=== PATIENT | male | born 1970 | race Caucasian/White ===

== ENCOUNTER 2020-05-19 19:49 | Emergency (ER) | payer BC, SELFPAY ==
[2020-05-19 20:00] VITALS: BP 169/105; PULSE 87; RESP 20; TEMP 36; O2SAT 98
--- NOTE | 2020-05-19 20:00 | ED.WOUNDLAC ---
HPI - Wound/Laceration General Chief Complaint: Wound/Laceration Stated Complaint: left thumb laceration Time Seen by Provider: 05/19/20 20:07 Source: patient Mode of arrival: ambulatory Limitations: no limitations History of Present Illness HPI narrative: Previously well 49-year-old man comes in today complaining of laceration on his left thumb. Patient states that he was using a razor knife to cut some plastic and slipped. It happened approximately 1 hour prior to presentation. He denies any numbness or decreased range of motion. He does not recall his last tetanus shot. Onset (ago): hour(s) (1) Extremity Location: Left: hand Place: home Patient tetanus UTD: No Context: accidental Associated symptoms: pain Treatments prior to arrival: bandage Related Data Allergies Allergy/AdvReac Type Severity Reaction Status Date / Time No Known Allergies Allergy Verified 05/19/20 20:37 Review of Systems Review of Systems: All systems reviewed & are unremarkable except as noted in HPI and below Constitutional: Constitutional: Denies chills and Denies fever(s) Respiratory: Respiratory: Denies cough and Denies dyspnea Gastrointestinal: Gastrointestinal: Denies nausea and Denies vomiting Musculoskeletal: Musculoskeletal: Denies arthralgias and Denies joint swelling Integumentary/Breasts: Skin/Breast: Denies pruritus, Denies erythema and Denies rash Neurologic: Denies focal weakness and Denies numbness Hematologic/Lymphatic: Hematologic/Lymphatic: Denies easy bleeding and Denies easy bruising PMFSH Social History Social History Smoking status: Never smoker Alcohol intake: never Substance use: never Living arrangements: with family Exam Const: General: healthy appearing and alert Orientation/consciousness: patient oriented x3 Limitations: no limitations Other: Mild acute distress. Eyes: Conjunctivae: conjunctivae normal Pupils: Equal, round and reactive pupils present EOM: EOMs intact bilaterally Resp: Effort & Inspection: normal respiratory effort and not labored Auscultation: clear to auscultation bilaterally, no rales, no rhonchi and no wheezes Cardio: Rate: regular rate Rhythm: regular rhythm Heart sounds: no murmurs Skin: General skin exam: normal color, no jaundice and no pallor Rashes: no rashes Other: 3.5 cm laceration on the ulnar aspect and the tip of the left thumb. Normal distal neurovascular exam. No foreign bodies. Neuro: General: patient oriented x3, moves all extremities, no focal motor deficits and CN's II-XI intact bilaterally Speech: normal speech Gait exam (Neuro): Normal gait present Extrem: General: normal to inspection and no clubbing, cyanosis or edema Psych: Appearance: grossly normal and well kempt Mental Status: mental status grossly normal Affect: normal affect Attitude: cooperative Thought content: Yes Normal thought content present Course Vital Signs Vital signs: Vital Signs Temperature 36.0 C L 05/19/20 20:00 Pulse Rate 87 05/19/20 20:00 Respiratory Rate 20 05/19/20 20:00 Blood Pressure 169/105 H 05/19/20 20:00 Pulse Oximetry 98 05/19/20 20:00 Temperature 36.0 C L 05/19/20 20:00 Pulse Rate 87 05/19/20 20:00 Respiratory Rate 20 05/19/20 20:00 Blood Pressure 169/105 H 05/19/20 20:00 Pulse Oximetry 98 05/19/20 20:00 Procedures Laceration Laceration 1: Date: 05/19/20 Time: 20:30 Site: hand Side (If applicable): left Size (cm): 3.5 Description: linear Depth: simple, single layer Local Anesthetic: lidocaine 1% Amount of anesthesia used (mL): 4 Pre-repair: wound explored and irrigated extensively ====== Skin Level ====== Skin layer closed with: nylon Size (cm): 4-0 Number of sutures: 9 Technique: simple, interrupted ====== Subcutaneous Layer ====== ====== Mus
[2020-05-19] MEDS: LIDOCAINE HCL 1% LOCAL INJ 20 ML VIAL 10 ML INFILTRATE (20:41)
[2020-05-19] MEDS: TETANUS,DIPHTHERIA,AC PERTUSSIS ADULT 0.5 ML (ADACEL) (20:42)
[2020-05-19 20:59] VITALS: BP 160/102; PULSE 87; RESP 20; TEMP 36.8; O2SAT 97
[2020-05-19] MEDS: NEOMYCIN/POLYMYXIN/BACITRACIN OINTMENT PACKET 1 PACKET (20:59)
== END 2020-05-19 21:05 | disposition home or self-care (01) ==
PROVIDERS: Emergency Provider Emergency Medicine; PCP Family Medicine
DX: S61.012A Laceration without foreign body of left thumb without damage to nail, initial encounter (principal); W26.0XXA Contact with knife, initial encounter
CPT/HCPCS: 12002; 90471; 90715; 99283

== ENCOUNTER 2023-07-16 13:16 | Emergency (ER) | payer BC, SELFPAY ==
[2023-07-16] VITALS (7 sets, daily range): BP systolic 122–144; BP diastolic 83–91; PULSE 73–95; RESP 15–20; TEMP 36.5; O2SAT 96–98
--- NOTE | ~2023-07-16 | XR_ITS ---
EXAMINATION: XR chest 2V DATE: 07/16/2023 14:55 INDICATION: Chest pain. TECHNIQUE: Frontal and lateral views of the chest were obtained. COMPARISON: None. FINDINGS: There is mild atelectasis at left lung base. No pleural effusion or pneumothorax. The heart size is normal. IMPRESSION: 1. Mild atelectasis at left lung base. Reviewed, dictated and finalized at location E.
--- NOTE | 2023-07-16 13:22 | ECG_ITS ---
SEE SCANNED COPY FOR CONFIRMED REPORT MTDD
[2023-07-16 13:37] LABS: Basophils Absolute Auto 0.1 K/mm3 (0.0-0.1); Basophils Percent Auto 0.9 % (0.2-1.2); Eosinophils Absolute Auto 0.3 K/mm3 (0-0.3); Eosinophils Percent Auto 4.6 % (0-4.4); Hematocrit 46.6 % (42.0-52.0); Hemoglobin 16.1 g/dL (14.0-18.0); Immature Granulocyte Absolute 0.02 K/mm3 (0.00-0.031); Immature Granulocyte Percent A 0.3 % (0-0.5); Lymphocytes Absolute Auto 2.45 K/mm3 (0.9-3.2); Lymphocytes Percent Auto 36.1 % (18.3-44.2); Mean Corpuscular HGB Conc 34.5 g/dl (32-36); Mean Corpuscular Hemoglobin 30.2 pg (26-34); Mean Corpuscular Volume 87.4 fl (80-100); Mean Platelet Volume 9.9 fl (7.4-10.4); Monocytes Absolute Auto 0.5 K/mm3 (0.1-0.6); Monocytes Percent Auto 7.2 % (2.6-8.5); Neutrophils Absolute Auto 3.5 K/mm3 (1.3-6.7); Neutrophils Percent Auto 50.9 % (45.5-73.1); Platelet Count Result 222 k/mm3 (150-375); Red Blood Count 5.33 M/mm3 (4.6-6.20); Red Cell Distribution Width 12.5 % (11.5-14.5); White Blood Count 6.8 K/mm3 (4.5-10.0)
[2023-07-16 13:47] LABS: Alanine Aminotransferase 55 U/L (6-50); Albumin Level 4.7 g/dL (3.5-5.1); Alkaline Phosphatase 70 U/L (38-126); Anion Gap 7 mmol/L (4-12); Aspartate Amino Transferase 33 U/L (17-59); Bilirubin,Total 0.6 mg/dL (0.2-1.3); Blood Urea Nitrogen 19 mg/dL (9-20); Calcium 9.5 mg/dL (8.4-10.2); Carbon Dioxide 24 mmol/L (22-30); Chloride 106 mmol/L (98-107); Estimated CRCL calculation 67 ml/min; Estimated Glomerular Filt Rate > 60; Glucose 131 mg/dL (65-110); Lipase 81 U/L (23-300); Potassium 4.1 mmol/L (3.4-5.0); Sodium 137 mmol/L (137-145)
[2023-07-16 13:53] LABS: INR 0.9; Partial Thromboplastin Time 26.8 Seconds (22.3-36.8); Prothrombin Time 12.2 Seconds (11.1-14.7)
[2023-07-16 13:58] LABS: Troponin I < 0.012 ng/mL (0.000-0.034)
[2023-07-16] MEDS: ASPIRIN 81 MG CHEWABLE TABLET 324 MG PO (14:49)
--- NOTE | 2023-07-16 14:50 | ED.CHESTPAIN ---
HPI - Chest Pain General Chief Complaint: Chest Pain Stated Complaint: Chest discomfort Time Seen by Provider: 07/16/23 14:31 History of Present Illness HPI narrative: This is a 52-year-old male, with history of hypertension, who presents to the emergency department complaining chest pain. The patient states this has been going on for several days. He describes the pain as pressure-like, minimal and present when he lies flat. He denies aggravation with physical or emotional exertion. He denies nausea, vomiting, diaphoresis or shortness of breath. He has no other complaints at this time. Related Data Allergies Allergy/AdvReac Type Severity Reaction Status Date / Time No Known Allergies Allergy Verified 07/16/23 13:21 Review of Systems Review of Systems: All systems reviewed & are unremarkable except as noted in HPI and below PMFSH Past Medical History Medical History Hypertension Surgical History Surgical History No significant past surgical history Social History Social History Smoking status: Never smoker Alcohol intake: never Substance use: never Living arrangements: with family Exam Narrative: GENERAL: Well-developed, well-nourished, and in no acute distress. HEAD: Normocephalic, atraumatic. EYES: PERRLA and EOMI. CHEST: Clear to auscultation. No respiratory distress. No wheezes rales or rhonchi. HEART: Regular rate and rhythm. No murmur heard. Normal peripheral pulses. ABDOMEN: Soft, nontender, nondistended, normal active bowel sounds. EXTREMITIES: Normal range of motion. No edema. SKIN: Warm, dry, no rash. NEURO: Alert and oriented x3. No focal deficit. Moving all 4 limbs spontaneously PSYCH: Normal mood and affect. Course Course Emergency Course: 14:45 - CBC unremarkable. Chemistries demonstrate mild hyperglycemia of glucose 131 but is otherwise unremarkable. Troponin negative. Lipase normal. EKG unremarkable. Heart score 2. Chest x-ray pending. I have a low suspicion for ACS at this time. 15:20 - Chest x-ray not concerning for acute cardiopulmonary process. 15:58 - I discussed the findings and recommendations with the patient. Will discharge with recommendation for primary care follow-up. Discussed return and emergency precautions including signs/symptoms of ACS in respiratory distress. The patient voiced understanding and agreement with the plan. All questions answered to his satisfaction. Vital Signs Vital signs: Vital Signs Temperature 97.7 F 07/16/23 13:19 Pulse Rate 95 07/16/23 13:19 Respiratory Rate 18 07/16/23 13:19 Blood Pressure 144/91 H 07/16/23 13:19 Pulse Oximetry 98 07/16/23 13:19 Oxygen Delivery Room Air 07/16/23 13:19 Temperature 97.7 F 07/16/23 13:19 Pulse Rate 86 07/16/23 14:39 Respiratory Rate 18 07/16/23 13:19 Blood Pressure 144/91 H 07/16/23 13:19 Pulse Oximetry 96 07/16/23 14:40 Oxygen Delivery Room Air 07/16/23 14:40 MDM - Chest Pain MDM Narrative Medical decision making narrative: Plan: Labs, EKG, troponin, imaging, reassess Differential Diagnosis Differential diagnosis: Likely other (ACS, costochondritis, GERD, pleurisy, metabolic abnormality, other) Lab Data 07/16/23 13:28 07/16/23 13:28 Labs: Lab Results 07/16/23 Range/Units 13:28 WBC 6.8 (4.5-10.0) K/mm3 RBC 5.33 (4.6-6.20) M/mm3 Hgb 16.1 (14.0-18.0) g/dL Hct 46.6 (42.0-52.0) % MCV 87.4 (80-100) fl MCH 30.2 (26-34) pg MCHC 34.5 (32-36) g/dl RDW 12.5 (11.5-14.5) % Plt Count 222 (150-375) k/mm3 MPV 9.9 (7.4-10.4) fl Immature Gran % (Auto) 0.3 (0-0.5) % Neut % (Auto) 50.9 (45.5-73.1) % Lymph % (Auto) 36.1 (18.3-44.2) % [place] % (Auto) 7.2 (2.6-8.5) % Eos % (Auto) 4.6 H (0-4.4) % Baso % (Auto) 0.9 (
== END 2023-07-16 16:08 | disposition home or self-care (01) ==
PROVIDERS: Emergency Medicine; Emergency Provider Preventive Medicine Aerospace Medicine; PCP Family Medicine
DX: R07.89 Other chest pain (principal); I10 Essential (primary) hypertension
CPT/HCPCS: 36415; 71046; 80053; 83690; 84484; 85025; 85610; 85730; 93005; 99284; A9270

== ENCOUNTER 2024-12-12 16:27 | Outpatient (NON) | payer BC, SELFPAY ==
--- NOTE | 2024-12-08 | S_PTH ---
PATIENT: Trevor Clayton LOC: [facility]#:[id number] AGE/SX: 54/M ROOM: RE12/12/[address]: Rios Jo DO : 1970 BED: DIS: 12/12/2024 SPEC #: [id number] RECD: 12/12/24 16:35 STATUS: AMBER REAlana #: [id number] NKECHI: 12/08/24 00:[address]: Rios Jo DEPT: [facility] Surgical RECD BY: Holly Alonso MLT, ([facility]) Tissues: A - Skin Bx Procedures: Hematoxylin and Eosin Stain [place]/Martha A Gross and Microscopic Level 4 PRAME
--- OUTSIDE RECORDS SUMMARY | 2024-12-12 16:31 | XMS_ITS | Clinical Summary ---
Author Organization [facility] Address [address] [place] [id number] Care Team Providers [facility] Name Role Phone None, Provider Primary Care Provider Unavaila ble Allergies No known active allergies Medications No known medications Family History Medical History Relation Comments Diabetes Maternal Uncle Hypertension Mother Diabetes Paternal Grandfather Cancer Paternal Uncle Relation Status Comments Maternal Uncle Mother Paternal Grandfather Paternal Uncle Social History Tobacco Use Types Packs/Day Years Used Date Smoking Tobacco: Former Smokeless Tobacco: Never Alcohol Use Standard Drinks/Week Comments Yes 0 (1 standard drink = 0.6 oz pur e alcohol) Sex and Gender Information Value Date Recorded Sex Assigned at Not on file Legal Sex Male 5:52 PM RESIDENTIAL CAREGIVER Gender Identity Not on file Sexual Orientation Not on file Last Filed Vital Signs Vital Sign Reading Time Taken Comments Blood Pressure 142/78 04/01/2019 9:00 AM RESIDENTIAL CAREGIVER Pulse 58 04/01/2019 9:00 AM RESIDENTIAL CAREGIVER Temperature 36.3 C (97.4 F) 04/01/2019 9:00 AM RESIDENTIAL CAREGIVER Respiratory Rate 18 04/01/2019 9:00 AM RESIDENTIAL CAREGIVER Oxygen Saturation 99% 04/01/2019 9:00 AM RESIDENTIAL CAREGIVER Inhaled Oxygen Concentration - - Weight 76.2 kg (168 lb) 03/25/2019 10:12 AM RESIDENTIAL CAREGIVER Height 167.6 cm (5' 6) 03/25/2019 10:12 AM RESIDENTIAL CAREGIVER Body Mass Index 27.12 03/25/2019 10:12 AM RESIDENTIAL CAREGIVER Plan of Treatment Health Maintenance Due Date Last Done Comments Annual Physical 08/17/1971 Hepatitis C 1986 DTaP, Tdap and Td Vaccines ( 1 - Tdap) 08/17/1987 Hepatitis B Vaccines (1 of 3 - 19+ 3-dose series) 08/17/1987 Pneumococcal Vaccine: 50+ Years (1 of 1 - PCV) 2018 Zoster Vaccines (1 of 2) 2018 COVID-19 Vaccine ( - 2023-2 5 season) 2024 Influenza Adult (#1) 2024 Colorectal Cancer Screening Colonoscopy (10 Years) 04/01/2029 04/01/2019, 04/01/2019 Hepatitis A Vaccines Aged Out No long er eligible based on patient's age to complete this topic Meningococcal B Vaccine Aged Out No l onger eligible based on patient's age to complete this topic Meningococcal Vaccine Aged Out No donna judith eligible based on patient's age to complete this topic RSV Immunizations Under 20 Months Aged Out No longer eligible b ased on patient's age to complete this topic Procedures Procedure Name Priority Date/Time Associated Diagnosis Comments COLONOSCOPY 04/01/2019 8:39 AM RESIDENTIAL CAREGIVER from Last 3 Months or Most Recently Relevant to Health Maintenance Results * COLONOSCOPY (04/01/2019 8:39 AM RESIDENTIAL CAREGIVER) Damon Sow MD GI PROCEDURE ORDERABLES Final Result from Last 3 Months or Most Recently Relevant to Health Maintenance [place] [address] [place] [address] Care Teams [facility] Relationship Specialty Start Date End Date None, Provider, PCP - General 02/15/19
== END 2024-12-12 16:28 | disposition home or self-care (01) ==
PROVIDERS: Visit Provider Family Medicine
DX: D22.5 Melanocytic nevi of trunk (principal)
CPT/HCPCS: 88305; 88342